=== PATIENT | male | born 1975 | race Caucasian/White ===

== ENCOUNTER 2018-01-10 21:09 | Emergency (ER) | payer BC ==
[2018-01-10] MEDS ORDERED: ONDANSETRON HCL IV 4 MG/2 ML VIAL IV ONE (21:35)
[2018-01-10] MEDS ORDERED: 0.9 % SODIUM CHLORIDE 1,000 ML BAG IV ONE (21:35)
[2018-01-10] MEDS ORDERED: HYDROMORPHONE HCL 2 MG/ML VIAL IVP ONE (21:36)
--- NOTE | 2018-01-10 21:37 | Emergency Department Record ---
History of Present Illness - General Chief Complaint: Abdominal Pain Stated Complaint: ABDOMINAL PAIN Time Seen by Provider: 01/10/18 21:32 Source: Patient Mode of Arrival: Ambulatory Limitations: No limitations - History of Present Illness Initial Comments: The patient is here due to the acute onset of R flank pain. The pain is sharp and stabbing. There is mild radiation to the R lower quad. The patient does feel nauseated but is not vomiting. He has no hx of kidney stones or any abdominal surgeries. MD Complaint: Flank pain Onset/Timin -: Hour(s) Location: R Flank Quality: Sharp, Stabbing Consistency: Constant, Getting worse Improves With: Nothing Worsens With: Nothing Associated Symptoms: Nausea - Related Data Home Medications Medication Instructions Recorded Confirmed Last Taken Escitalopram Oxalate [Lexapro] 10 mg PO DAILY 01/10/18 01/10/18 Unknown Previous Rx's Medication Instructions Recorded Ciprofloxacin HCl/Dexameth 4 drop OT BID #1 btl 01/10/18 [Ciprodex Otic Suspension] Sucralfate [Carafate] 1 gm PO QID #28 tablet 01/10/18 Allergies Allergy/AdvReac Type Severity Reaction Status Date / Time No Known Drug Allergies Allergy Verified 01/30/16 13:52 Travel Screening - Travel/Exposure Within Last 30 Days Have you traveled within the last 30 days?: No Review of Systems Constitutional: Denies: Chills, Fever Past Medical History - SOCIAL HISTORY Smoking Status: Current every day smoker Alcohol Use: None Drug Use: None - RESPIRATORY Hx Respiratory Disorders: No - CARDIOVASCULAR Hx Cardio Disorders: No - NEURO Hx Neuro Disorders: No - GI Hx GI Disorders: No - Hx Genitourinary Disorders: No - ENDOCRINE Hx Endocrine Disorders: No - MUSCULOSKELETAL Hx Musculoskeletal Disorders: No - PSYCH Hx Psych Problems: No - HEMATOLOGY/ONCOLOGY Hx Hematology/Oncology Disorders: No Family Medical History Any Significant Family History?: No Physical Exam - General General Appearance: Alert, Oriented x3, Cooperative - Head Head exam: Atraumatic, Normocephalic - Eye Eye exam: Normal appearance, PERRL - ENT ENT exam: negative: TM's normal bilaterally (There are chronic changes bilaterally but no acute infection.) - Neck Neck exam: Normal inspection, Full ROM. negative: Tenderness - Respiratory Respiratory exam: Normal lung sounds bilaterally. negative: Respiratory distress - Cardiovascular Cardiovascular Exam: Regular rate, Normal rhythm, Normal heart sounds - GI/Abdominal GI/Abdominal exam: Soft, Normal bowel sounds. negative: Distended, Guarding, Rebound, Rigid, Tenderness - Extremities Extremities exam: Normal inspection, Full ROM, Normal capillary refill. negative: Tenderness - Neurological Neurological exam: Alert, Normal gait. negative: Abnormal gait, Motor sensory deficit Course Vital Signs 01/10/18 21:15 Temperature 98 F Pulse Rate [ 100 H Pulse Ox Probe] Respiratory 24 Rate Blood Pressure 154/100 [Left Arm] Pulse Ox 98 - Reevaluation(s) Reevaluation #1: The patient is doing better at this time. He denies any pain or discomfort at this time. I did report the normal workup to the patient with the normal labs and CT. He has been having intermittent drainage from his L ear so we will place him on drops for it. On exam the patient's abdomen is very soft and nontender in all 4 quads. He is up ambulating with no pain or discomfort. 01/10/18 22:53 Medical Decision Making - Data Complexity MDM Data: Labs Ordered and/or Reviewed, X-Ray Ordered and/or Reviewed - Lab Data Result diagrams: 01/10/18 21:20 01/10/18 21:20 - Radiology Data Radiology results: Report reviewed (Abd CT: Neg for any acute abnormality.) Disposition Disposition: Discharge Clinical Impression: Flank pain, acute Disposition: Home, Self-Care Condition: (2) Stable Instructions: Abdominal Pain (ED) Additional Instructions: Please take the Carafate as directed and use Tylenol for pain. Please use the ear drops in the L ear. Please see your family doctor for recheck in 3 days and return to the ER for any worsening symptoms. Prescriptions: Ciprofloxacin HCl/Dexameth [Ciprodex Otic Suspension] 4 drop OT BID #1 btl Sucralfate [Carafate] 1 gm PO QID #28 tablet Forms: Patient Portal Access Time of Disposition: 22:57 Quality - Quality Measures Quality Measures: N/A - Blood Pressure Screening View Details: Yes Does Patient Have Any of the Following: No Blood Pressure Classification: Normal BP Reading Systolic Measurement: 117 Diastolic Measurement: 79 Screening for High Blood Pressure: < Normal BP, F/U Not Required > [G8783]
[2018-01-10 21:43] LABS: BASO % 0.4 % (0-6); EOS % 2.8 % (0-6); GRAN % 62.2 % (47-80); HEMATOCRIT 47.1 % (42.0-52.0); HEMOGLOBIN 16.8 gm/dl (14.0-18.0); LYMPH % 21.9 % (16-45); MEAN CELL VOLUME 85.6 fl (81-97); MEAN CORPUSCULAR HEMOGLOBIN 30.5 pg (27-33); MEAN CORPUSCULAR HGB CONC 35.7 g/dl (32-36); MEAN PLATELET VOLUME 9.5 fl (7.4-10.4); MONO % 12.7 % (0-9); PLATELET COUNT 238 K/uL (130-400); RED CELL DISTRIBUTION WIDTH 14.1 % (11.5-14.5)
[2018-01-10 21:54] LABS: BLOOD UREA NITROGEN 13 mg/dL (6-20)
[2018-01-10 21:55] LABS: EST GLOMERULAR FILTRATION RATE > 60 mL/min; TOTAL PROTEIN 6.9 g/dL (6.6-8.7)
[2018-01-10 21:57] LABS: GLUCOSE,RANDOM 107 mg/dL (74-109)
[2018-01-10 22:00] LABS: ALBUMIN 4.3 g/dL (4.0-5.0); ALKALINE PHOSPHATASE 60 U/L (40-129); ALT/SGPT 20 U/L (<41); AST/SGOT 15 U/L (10.0-50.0); BILIRUBIN,DIRECT < 0.2 mg/dL (0-0.3); LIPASE 32 U/L (13-60)
[2018-01-10] MEDS ORDERED: KETOROLAC 30 MG/ML VIAL IVP ONE (22:17)
[2018-01-10 22:26] LABS: URINE APPEARANCE SL CLOUDY; URINE BILIRUBIN NEGATIVE (NEGATIVE); URINE BLOOD NEGATIVE (NEGATIVE); URINE COLOR YELLOW; URINE GLUCOSE (UA) NEGATIVE (NEGATIVE); URINE KETONE NEGATIVE (NEGATIVE); URINE LEUKOCYTE ESTERASE NEGATIVE (NEGATIVE); URINE NITRITE NEGATIVE (NEGATIVE); URINE PROTEIN NEGATIVE (NEGATIVE); URINE UROBILINOGEN 0.2 E.U./dL (0.20 - 1.00)
--- NOTE | 2018-01-12 09:27 | CT SCAN REPORT ---
EXAM: CT SCAN OF THE ABDOMEN AND PELVIS WITHOUT CONTRAST HISTORY: RIGHT FLANK PAIN. MID ABDOMINAL PAIN AND STOMACH PAIN. SYMPTOMS FOR THE PAST DAY. TECHNIQUE: Standard CT imaging of the abdomen and pelvis was performed without contrast. Additional coronal and sagittal reformatted images were also performed. Comparison: None. FINDINGS: A 3 mm subpleural nodule is present within the right lower lobe laterally. Mild dependent atelectasis is also present at both lung bases. The liver is normal. There are multiple calcified stones within the gallbladder. There is no CT evidence for acute cholecystitis. There is no intra or extrahepatic biliary ductal dilatation. The pancreas, spleen, and adrenal glands are normal. The kidneys and ureters are unremarkable. There is no urinary tract calculus or obstructive uropathy. The aorta is normal in caliber. There is no retroperitoneal lymphadenopathy. There are a few scattered diverticula within the sigmoid colon with no evidence for acute diverticulitis. The large and small bowel loops are otherwise normal. The appendix is unremarkable. There is no pneumoperitoneum or ascites. The urinary bladder and prostate gland are normal. There are no acute osseous abnormalities. IMPRESSION: 1. CHOLELITHIASIS WITH NO EVIDENCE FOR ACUTE CHOLECYSTITIS. 2. NORMAL KIDNEYS AND URETERS. THERE IS NO OBSTRUCTING CALCULUS OR HYDRONEPHROSIS. 3. MINOR SIGMOID DIVERTICULOSIS WITH NO DIVERTICULITIS. 4. 3 MM NONCALCIFIED NODULE AT THE RIGHT LUNG BASE LATERALLY. NO FURTHER FOLLOW-UP IS REQUIRED UNLESS THE PATIENT IS AT HIGH RISK FOR MALIGNANCY, IN WHICH CASE, A TWELVE MONTH FOLLOW-UP WOULD BE RECOMMENDED. JOB NUMBER: [id number] MTDD
== END 2018-01-10 23:03 | disposition home or self-care (01) ==
LOC: ER 21:09
DX: R10.9 Unspecified abdominal pain (principal); R11.0 Nausea; H92.10 Otorrhea, unspecified ear; F17.210 Nicotine dependence, cigarettes, uncomplicated
CPT/HCPCS: 99283; 99284; 83690; 85025; 80076; 80048; 81003; 74176; J1885; J2405; J1170; J7030

== ENCOUNTER 2018-08-07 22:21 | Emergency (ER) | payer BC ==
[2018-08-07] MEDS ORDERED: ONDANSETRON HCL IV 4 MG/2 ML VIAL IVP ONE (23:23)
[2018-08-07] MEDS ORDERED: KETOROLAC 30 MG/ML VIAL IVP ONE (23:23)
--- NOTE | 2018-08-07 23:44 | Emergency Department Record ---
History of Present Illness - General Chief Complaint: Headache Migraine Stated Complaint: KEITH,VOMITING,COUGHING Time Seen by Provider: 08/07/18 23:09 Source: Patient Mode of Arrival: Ambulatory Limitations: No limitations - History of Present Illness Initial Comments: pt has a cough productive green, a headache and has vomited twice. his son has viral meningitis Complaint: Headache Onset/Timin -: Days(s) Onset Description: Gradual Location: Neck, Occipital Severity scale (1-10): 3 Quality: Aching Consistency: Constant Improves With: Medication Context: Close contacts with similar symptoms Associated Symptoms: Nausea, Vomiting Treatments Prior to Arrival: Acetaminophen - Related Data Previous Rx's Medication Instructions Recorded Azithromycin [Zithromax] 250 mg PO DAILY #4 tab 08/08/18 Promethazine HCl [Phenergan] 25 mg PO BID #7 tablet 08/08/18 Allergies Allergy/AdvReac Type Severity Reaction Status Date / Time No Known Drug Allergies Allergy Verified 01/30/16 13:52 Travel Screening - Travel/Exposure Within Last 30 Days Have you traveled within the last 30 days?: No - Travel Symptoms Symptom Screening: None Review of Systems Reviewed: No additional complaints except as noted below Constitutional: Reports: As per HPI. Denies: Chills, Fever, Malaise, Night sweats, Weakness, Weight change Eyes: Reports: As per HPI. Denies: Eye discharge, Eye pain, Photophobia, Vision change ENT: Reports: As per HPI. Denies: Congestion, Dental pain, Ear pain, Epistaxis , Hearing loss, Throat pain Respiratory: Reports: As per HPI. Denies: Cough, Dyspnea, Hemoptysis, Stridor, Wheezes Cardiovascular: Reports: As per HPI. Denies: Arrhythmia, Chest pain, Dyspnea on exertion, Edema, Murmurs, Orthopnea, Palpitations, Paroxysmal nocturnal dyspnea, Rheumatic Fever, Syncope Endocrine: Reports: As per HPI. Denies: Fatigue, Heat or cold intolerance, Polydipsia, Polyuria Gastrointestinal: Reports: As per HPI. Denies: Abdominal pain, Constipation, Diarrhea, Hematemesis, Hematochezia, Melena, Nausea, Vomiting Genitourinary: Reports: As per HPI. Denies: Dysuria, Frequency, Hematuria, Incontinence, Retention, Testicular pain, Testicular mass, Urgency Musculoskeletal: Reports: As per HPI. Denies: Arthralgia, Back pain, Gout, Joint swelling, Myalgia, Neck pain Skin: Reports: As per HPI. Denies: Bruising, Change in color, Change in hair/ nails, Lesions, Pruritus, Rash Neurological: Reports: As per HPI. Denies: Abnormal gait, Confusion, Headache, Numbness, Paresthesias, Seizure, Tingling, Tremors, Vertigo, Weakness Psychiatric: Reports: As per HPI. Denies: Anxiety, Auditory hallucinations, Depression, Homicidal thoughts, Suicidal thoughts, Visual hallucinations Hematological/Lymphatic: Reports: As per HPI. Denies: Anemia, Blood Clots, Easy bleeding, Easy bruising, Swollen glands Past Medical History - SOCIAL HISTORY Smoking Status: Current every day smoker - RESPIRATORY Hx Respiratory Disorders: No - CARDIOVASCULAR Hx Cardio Disorders: No - NEURO Hx Neuro Disorders: No Comment:: Deaf-has hearing aids w/controller - GI Hx GI Disorders: No - Hx Genitourinary Disorders: No - ENDOCRINE Hx Endocrine Disorders: No - MUSCULOSKELETAL Hx Musculoskeletal Disorders: No - PSYCH Hx Psych Problems: No - HEMATOLOGY/ONCOLOGY Hx Hematology/Oncology Disorders: No Family Medical History Any Significant Family History?: Yes Hx Cancer: Father, Mother Hx Dementia: Grandparents Physical Exam - General General Appearance: Alert, Oriented x3, Cooperative, Mild distress - Head Head exam: Normal inspection - Eye Eye exam: Normal appearance, PERRL, EOMI Pupils: Normal accommodation - ENT ENT exam: Normal exam, Mucous membranes moist, Normal external ear exam, Normal orophraynx Ear exam: Normal external inspection. negative: External canal tenderness Nasal Exam: Normal inspection. negative: Discharge, Sinus tenderness Mouth exam: Normal external inspection, Tongue normal Teeth exam: Normal inspection. negative: Dental caries Throat exam: Normal inspection. negative: Tonsillar erythema, Tonsillar exudate - Neck Neck exam: Normal inspection, Full ROM. negative: Tenderness - Respiratory Respiratory exam: Normal lung sounds bilaterally. negative: Respiratory distress - Cardiovascular Cardiovascular Exam: Regular rate, Normal rhythm, Normal heart sounds - GI/Abdominal GI/Abdominal exam: Soft, Normal bowel sounds. negative: Tenderness - Rectal Rectal exam: Deferred - exam: Deferred - Extremities Extremities exam: Normal inspection, Full ROM, Normal capillary refill. negative: Tenderness - Back Back exam: Reports: Normal inspection, Full ROM. Denies: Muscle spasm, Rash noted, Tenderness - Neurological Neurological exam: Alert, CN II-XII intact, Normal gait, Oriented X3 - Psychiatric Psychiatric exam: Normal affect, Normal mood - Skin Skin exam: Dry, Intact, Normal color, Warm Course Vital Signs 08/07/18 22:27 Temperature 98 F Pulse Rate [ 80 Pulse Ox Probe] Respiratory 20 Rate Blood Pressure 120/76 [Left Arm] Pulse Ox 100 - Reevaluation(s) Reevaluation #1: 08/08/18 00:32 pt feels much better Medical Decision Making - Lab Data Result diagrams: 08/07/18 23:39 08/07/18 23:39 Disposition Disposition: Discharge Clinical Impression: Bronchitis Disposition: Home, Self-Care Condition: (1) Good Instructions: Acute Bronchitis (ED) Additional Instructions: follow up with family doctor. return sooner if worse. tylenol or motrin as needed. push fluids Prescriptions: Azithromycin [Zithromax] 250 mg PO DAILY #4 tab Promethazine HCl [Phenergan] 25 mg PO BID #7 tablet Forms: Patient Portal Access Quality - Quality Measures Quality Measures: Adult Bronchitis (18-64yr) - Adult Bronchitis Quality Measure: Measure #116: Avoidance of ABX w/Adult Bronchitis Is patient being admitted: No Avoidance of ABX w/Bronchitis: Medical Reason for prescribing ABX [G9712] Medical Reason For Rx: Acute Pharyngitis - Blood Pressure Screening Does Patient Have Any of the Following: No Blood Pressure Classification: Normal BP Reading Systolic Measurement: 109 Diastolic Measurement: 68 Screening for High Blood Pressure: < Normal BP, F/U Not Required > [G8783]
[2018-08-07 23:49] LABS: BASO % 0.4 % (0-6); EOS % 3.5 % (0-6); GRAN % 59.7 % (47-80); HEMATOCRIT 47.3 % (42.0-52.0); HEMOGLOBIN 17.2 gm/dl (14.0-18.0); LYMPH % 25.6 % (16-45); MEAN CELL VOLUME 87.3 fl (81-97); MEAN CORPUSCULAR HEMOGLOBIN 31.7 pg (27-33); MEAN CORPUSCULAR HGB CONC 36.4 g/dl (32-36); MEAN PLATELET VOLUME 9.2 fl (7.4-10.4); MONO % 10.8 % (0-9); PLATELET COUNT 261 K/uL (130-400); RED BLOOD COUNT 5.42 M/uL (4.40-5.70); RED CELL DISTRIBUTION WIDTH 14.3 % (11.5-14.5); WHITE BLOOD COUNT W/O DIFF 9.3 K/uL (4.2-12.2)
[2018-08-07 23:57] LABS: BLOOD UREA NITROGEN 12 mg/dL (6-20); CREATININE 0.7 mg/dL (0.7-1.2); EST GLOMERULAR FILTRATION RATE > 60 mL/min; INFLUENZA A NEGATIVE (NEGATIVE); INFLUENZA B NEGATIVE (NEGATIVE); STREP A SCREEN NEGATIVE (NEGATIVE)
[2018-08-08] LABS: GLUCOSE,RANDOM 96 mg/dL (74-109)
[2018-08-08] MEDS ORDERED: AZITHROMYCIN 500 MG TABLET PO ONE (00:39)
== END 2018-08-08 00:51 | disposition home or self-care (01) ==
LOC: ER 22:21
DX: J20.9 Acute bronchitis, unspecified (principal); R11.10 Vomiting, unspecified; R51 Headache; F17.210 Nicotine dependence, cigarettes, uncomplicated
CPT/HCPCS: 99283 ×2; 96374; 96375; 85025; 80048; 87880; 87400; 71046; J1885; J2405

== ENCOUNTER 2019-12-07 02:32 | Emergency (ER) | payer BC ==
--- NOTE | 2019-12-07 02:45 | Emergency Department Record ---
History of Present Illness - General Chief complaint: Lower Extremity Pain Stated complaint: LLE PAIN Time Seen by Provider: 12/07/19 02:34 Source: Patient Mode of Arrival: Ambulatory Limitations: No limitations - History of Present Illness Initial comments: 44 yo male presents to ED for evaluation of left calf pain for the past 2 weeks. Patient denies specific injury, but reports that the nurse at his employer () recommended that he come to the ED for evaluation to exclude a DVT. Patient denies history of DVT, lower extremity swelling, or recent immobilization. Patient reports that he stands for 8-10 hours at work, and that his symptoms are not improving following initiation of symptoms 2 weeks ago. Patient also denies health problems at his baseline. MD Complaint: Extremity pain Onset/Timin -: Week(s) Location: Left, Lower Leg History of Same: No -: Yes Myalgia Quality: Aching Consistency: Constant Improves with: Other (non-weight bearing) Worsens with: Walking Associated Symptoms: Denies other symptoms - Related Data Home Medications Medication Instructions Recorded Confirmed Last Taken No Home Med [NO HOME MEDS] 12/07/19 12/07/19 Unknown Allergies Allergy/AdvReac Type Severity Reaction Status Date / Time No Known Drug Allergies Allergy Verified 12/07/19 02:41 Review of Systems Constitutional: Denies: Chills, Fever, Malaise, Night sweats Eyes: Denies: Eye discharge, Eye pain ENT: Denies: Congestion, Ear pain, Epistaxis Respiratory: Denies: Cough, Dyspnea Cardiovascular: Denies: Chest pain, Dyspnea on exertion Endocrine: Denies: Fatigue, Heat or cold intolerance Gastrointestinal: Denies: Abdominal pain, Nausea, Vomiting Genitourinary: Denies: Frequency, Incontinence, Retention Musculoskeletal: Reports: Myalgia. Denies: Arthralgia, Back pain Skin: Denies: Bruising, Change in color Neurological: Denies: Abnormal gait, Confusion, Headache, Seizure Psychiatric: Denies: Anxiety Hematological/Lymphatic: Denies: Anemia, Blood Clots Past Medical History - SOCIAL HISTORY Smoking Status: Current every day smoker - RESPIRATORY Hx Respiratory Disorders: No - CARDIOVASCULAR Hx Cardio Disorders: No - NEURO Hx Neuro Disorders: No Comment:: Deaf-has hearing aids w/controller - GI Hx GI Disorders: No - Hx Genitourinary Disorders: No - ENDOCRINE Hx Endocrine Disorders: No - MUSCULOSKELETAL Hx Musculoskeletal Disorders: No - PSYCH Hx Psych Problems: No - HEMATOLOGY/ONCOLOGY Hx Hematology/Oncology Disorders: No Family Medical History Hx Cancer: Father, Mother Hx Dementia: Grandparents Physical Exam - General General Appearance: Alert, Oriented x3, Cooperative, No acute distress, Other (Ambulates with steady gait on examination) Limitations: No limitations - Head Head exam: Atraumatic, Normocephalic, Normal inspection Head exam detail: negative: Abrasion, Contusion, Zafar's sign, General tenderness, Hematoma, Laceration - Eye Eye exam: Normal appearance. negative: Conjunctival injection, Periorbital swelling, Periorbital tenderness, Scleral icterus - ENT Ear exam: negative: Auricular hematoma, Auricular trauma Nasal Exam: negative: Active bleeding, Discharge, Dried blood, Foreign body Mouth exam: negative: Drooling, Laceration, Muffled voice, Tongue elevation - Neck Neck exam: Normal inspection. negative: Meningismus, Tenderness - Respiratory Respiratory exam: Normal lung sounds bilaterally. negative: Rales, Respiratory distress, Rhonchi, Stridor - Cardiovascular Cardiovascular Exam: Regular rate, Normal rhythm, Normal heart sounds - GI/Abdominal GI/Abdominal exam: Soft. negative: Rebound, Rigid, Tenderness - Rectal Rectal exam: Deferred - exam: Deferred - Extremities Extremities exam: Calf tenderness. negative: Pedal edema, Tenderness - Back Back exam: Denies: CVA tenderness (R), CVA tenderness (L) - Neurological Neurological exam: Alert, Normal gait, Oriented X3 - Psychiatric Psychiatric exam: Normal affect, Normal mood - Skin Skin exam: Normal color. negative: Abrasion Type of lesion: negative: abrasion Course - Reevaluation(s) Reevaluation #1: 12/07/19 03:06 D-Dimer 0.27 Patient was updated on his D-Dimer result, appears stable for discharge with in structions for follow-up with employee health. Symptoms are likely the result of calf strain. Disposition Disposition: Discharge Clinical Impression: Pain of left calf Disposition: Home, Self-Care Condition: (2) Stable Instructions: Musculoskeletal Pain (ED) Additional Instructions: Return to ED if your symptoms worsen or if you have any concerns. Ibuprofen as directed. Follow-up with employee health in 3-5 days as directed. Forms: Patient Portal Access Time of Disposition: 03:07 Quality - Quality Measures Quality Measures: N/A - Blood Pressure Screening Does Patient Have Any of the Following: No Blood Pressure Classification: Pre-Hypertensive BP Reading Systolic Measurement: 125 Diastolic Measurement: 87 Screening for High Blood Pressure: < Pre-Hypertensive BP, F/U Documented > [G8950] Pre-Hypertensive Follow-up Interventions: Referral to alternative/primary care provider.
== END 2019-12-07 03:14 | disposition home or self-care (01) ==
LOC: ER 02:32
DX: M79.662 Pain in left lower leg (principal); R05 Cough; F17.210 Nicotine dependence, cigarettes, uncomplicated
CPT/HCPCS: 85379; 99283